=== PATIENT | female | born 1965 | race Caucasian/White ===

== ENCOUNTER → 2017-02-25 | Outpatient (CLI) | payer OTHER ==
[~2017-02-25] MED LIST: ESCI10TA PO
== END ==
LOC: STAR 12:30
PROVIDERS: ATTEND Internal Medicine
DX: Z02.9 Encounter for administrative examinations, unspecified (principal)

== ENCOUNTER 2017-03-06 08:02 | Day surgery (SDC) | payer OTHER ==
[~2017-03-06] VITALS: Ht 162.6 cm; Wt 61.0 kg
[2017-03-06] MEDS ORDERED: LACTATED RINGERS 1,000 ML IV SCH (08:46)
[2017-03-06 08:47] VITALS: BP 122/81
[2017-03-06] MEDS ORDERED: FENTANYL PF 100 MCG/2ML ONE (09:25)
[2017-03-06] MEDS ORDERED: NEOSTIGMINE 1 MG/ML, 10ML ONE (09:31)
[2017-03-06] MEDS ORDERED: ROCURONIUM 10 MG/ML ONE (09:31)
[2017-03-06] MEDS ORDERED: ONDANSETRON 2MG/ML, 2ML ONE (09:31)
[2017-03-06] MEDS ORDERED: GLYCOPYRROLATE 0.2MG/1ML ONE (09:31)
[2017-03-06] MEDS ORDERED: SUCCINYLCHOLINE 20 MG/ML, 10ML ONE (09:31)
[2017-03-06] MEDS ORDERED: PROPOFOL 10 MG/ML, 20ML ONE (09:31)
[2017-03-06] MEDS ORDERED: ACETAMINOPHEN 325 MG TABLET PO PRN (10:30)
[2017-03-06] MEDS ORDERED: ONDANSETRON 2MG/ML, 2ML IVPush PRN (10:30)
[2017-03-06] MEDS ORDERED: FENTANYL PF 100 MCG/2ML IV PRN (10:30)
== END 2017-03-06 10:55 ==
LOC: OUT 08:02
PROVIDERS: ATTEND Internal Medicine
DX: Z12.11 Encounter for screening for malignant neoplasm of colon (principal); K63.89 Other specified diseases of intestine; F41.9 Anxiety disorder, unspecified; Z80.0 Family history of malignant neoplasm of digestive organs; Z90.710 Acquired absence of both cervix and uterus
CPT/HCPCS: 45378; 74000; 76000; J0330; J2405; J2704; J2710; J3010; J7120; J3490